=== PATIENT | male | born 1980 | race African-American/Black ===

== ENCOUNTER 2020-02-16 17:49 | Emergency (ER) | payer MEDICAID ==
[~2020-02-16] VITALS: Ht 185.4 cm; Wt 90.7 kg
--- NOTE | 2020-02-16 18:31 | NUR ---
PT CAME IN CO OF DENTAL PAIN. PT ALSO STATES " I HAVE DIABETES AND I HAVENT BEEN TAKING MY METFORMIN. MY SUGARS HAVE BEEIN THE 2 SOMETHING". [facility] CONNECTED TO MONITORING EQUIPMENT
[2020-02-16] MEDS ORDERED: HYDROcodone/APAP 5/325 TABLET ONE (18:39)
[2020-02-16] MEDS ORDERED: ONDANSETRON 2MG/ML, 2ML ONE (18:40)
[2020-02-16] MEDS ORDERED: MECLIZINE CHEWABLE 25 MG TAB ONE (18:40)
[2020-02-16] MEDS ORDERED: SODIUM CHLORIDE 0.9% 1,000ML IVBOLUS ONE ×2 (19:00→20:00)
[2020-02-16] MEDS ORDERED: HYDROcodone/APAP 5/325 TABLET PO ONE (19:00)
[2020-02-16 19:08] LABS: PH, VENOUS 7.497 pH (7.320-7.420)
[2020-02-16 19:10] LABS: BASOPHILS # (AUTO) 0.01 x10^3/uL (0-0.1); BASOPHILS % (AUTO) 0 % (0-1); EOSINOPHILS # (AUTO) 0.14 x10^3/uL (0-0.4); EOSINOPHILS % (AUTO) 2 % (1-7); FIO2 ROOM AIR %; LYMPHOCYTES # (AUTO) 1.96 x10^3/uL (1-3.4); LYMPHOCYTES % (AUTO) 32 % (22-44); MD NO; MEAN CORPUSCULAR HEMOGLOBIN 30.1 pg (27.5-34.5); MEAN CORPUSCULAR VOLUME 91.1 fL (81-97); MEAN PLATELET VOLUME 8.4 fL (7.4-10.4); MONOCYTES # (AUTO) 0.26 x10^3/uL (0.2-0.8); MONOCYTES % (AUTO) 4 % (2-9); NEUTROPHILS # (AUTO) 3.81 x10^3/uL (1.8-6.8); NEUTROPHILS % (AUTO) 62 % (42-75); PLATELET COUNT 283 x10^3/uL (130-400); RED BLOOD COUNT 5.54 x10^6/uL (4.38-5.82); RED CELL DISTRIBUTION WIDTH 12.1 % (9.4-14.8)
[2020-02-16] MEDS ORDERED: IBUPROFEN 600 MG TABLET ONE (19:11)
[2020-02-16 19:24] LABS: ACETONE, SERUM Negative (Negative)
[2020-02-16 19:25] LABS: ALBUMIN 3.5 g/dL (3.4-5.0); ANION GAP 10 mmol/L (5-15); CALCIUM 9.1 mg/dL (8.5-10.1); CHLORIDE 99 mmol/L (98-107); CREATININE 1.79 mg/dL (0.7-1.3)
[2020-02-16] MEDS ORDERED: IBUPROFEN 200 MG TABLET PO ONE (19:30)
[2020-02-16] MEDS ORDERED: INSULIN SINGLE DOSE, ER ONE (20:00)
[2020-02-16] MEDS ORDERED: INSULIN REGULAR 100 UNITS/ML, 3ML VIAL IVPush ONE (20:00)
--- NOTE | 2020-02-16 20:00 | NUR ---
PT PROVIDED A BLANKET AT PT REQUEST
--- NOTE | 2020-02-16 20:25 | NUR ---
PT RESTING IN BED, PT ON MONITOR, PT DENIED CURRENT WANTS OR NEEDS. RN WILL CONTINUE TO MONITOR.
[2020-02-16 20:56] VITALS: BP 132/88
== END 2020-02-16 20:59 | disposition home or self-care (01) ==
LOC: ED 18:19
DX: K04.7 Periapical abscess without sinus (principal); K02.9 Dental caries, unspecified; E11.65 Type 2 diabetes mellitus with hyperglycemia; Z76.0 Encounter for issue of repeat prescription; F17.200 Nicotine dependence, unspecified, uncomplicated; J45.909 Unspecified asthma, uncomplicated
CPT/HCPCS: 36415; 80048; 82010; 82040; 82803; 82962; 85025; 96361; 96374; 99283; J1815; J7030